=== PATIENT | male | born 1980 | race Caucasian/White ===

== ENCOUNTER 2023-02-21 10:36 | Emergency (ER) | payer MEDICAID, SELFPAY ==
[2023-02-21 10:37] VITALS: BP 150/87; PULSE 88; RESP 18; TEMP 35.9; O2SAT 97; BMI 41.5
--- NOTE | 2023-02-21 11:13 | US_ITS ---
STUDY: SCROTUM ULTRASOUND REASON FOR EXAM: Male, 42 years old. Pain, edema left TECHNIQUE: Ultrasound evaluation of the scrotum was performed with color Doppler and static strickland-scale imaging. COMPARISON: None. FINDINGS: RIGHT TESTICLE INTRATESTICULAR: There is a normal size of the right testicle. The right testicle measures 5 cm x 3.5 cm x 2.4 cm. There is a homogenous echotexture. There is normal arterial and normal venous vascularity. There is no demonstrated right testicular mass or cyst. EXTRATESTICULAR: The epididymis is normal in size. The epididymis head measures 1.1 cm x 1.7 cm x 1 cm. There is normal vascularity of the epididymis. There is no demonstrated epididymal cystic structure. There is no demonstrated hydrocele. There is no demonstrated varicocele. There is no demonstrated extratesticular mass or cyst. LEFT TESTICLE INTRATESTICULAR: There is a normal size of the left testicle. The left testicle measures 4.5 cm x 2 27 x 2.4 cm. There is a homogenous echotexture. There is normal arterial and normal venous vascularity. There is no demonstrated left testicular mass or cyst. EXTRATESTICULAR: The epididymis is normal in size. The epididymis head measures 1.1 cm x 1.3 cm x 1.1 cm. There is normal vascularity of the epididymis. There is no demonstrated epididymal cystic structure. There is no demonstrated hydrocele. There is no demonstrated varicocele. There is no demonstrated extratesticular mass or cyst. Left-sided scrotal skin thickening. US/Testicular with Arterial Flow IMPRESSION: Skin thickening of the left scrotum. Electronically Signed: Phi Anderson MD at 11:57 EDT ,
--- NOTE | 2023-02-21 11:44 | EDS_ITS ---
HPI History of Present Illness Chief Complaint: Male Pain/Injury Informant: patient Narrative Narrative: Patient is a 42-year-old male that denies any significant past medical history presenting with left-sided testicular pain and swelling. He states it started l ast night but is more mild. This morning when he woke up it was more severe. Denies any difficulty urinating. Feels it is swollen as well. It radiates up into his groin. Did not take anything for pain prior to arrival. Denies any penile discharge. Denies any pain with defecation. Denies any history of testicular torsion or epididymitis. Is in a monogamous relationship and states he is not concerned for any sexually transmitted infection. PFSH [facility] Medical History (Updated 02/21/23 @ 14:[address] Aminata Concepcion, ) Diabetes mellitus HLD (hyperlipidemia) Home Medications levofloxacin 750 mg tablet 750 mg PO DAILY #10 tabs 02/21/23 [Rx Last Taken Unknown] Allergy/AdvReac Type Severity Reaction Status Date / Time No Known Allergies Allergy Verified 02/21/23 10:39 Surgical History (Updated 02/21/23 @ 10:46 by Katelyn Cutler) H/O vasectomy Social History Smoking Status: Former smoker ROS ROS ED Constitutional Constitutional ED: Denies chills or fever(s) ENT ENT ED: Denies sore throat Cardiovascular Cardiovascular: Denies chest pain Respiratory/Chest Respiratory/Chest: Denies cough Gastrointestinal Gastrointestinal: Denies abdominal pain, constipation, diarrhea, nausea or vomiting Genitourinary Genitourinary ED: Reports other Details: left groin pain ; Denies dysuria, hematuria or urinary frequency Musculoskeletal Musculoskeletal: Denies arthralgias, back pain or myalgias Integumentary Denies rash Neurologic Neurologic: Denies headache(s) Hematologic/Lymphatic Hematologic/Lymphatic: Denies easy bleeding or easy bruising EXAM Physical Exam Const Vital Signs: 02/21/23 10:37 02/21/23 15:19 Temperature 96.7 F L Temperature Source Temporal Pulse Rate 88 62 Respiratory Rate 18 15 Blood Pressure 150/87 H 138/77 H Blood Pressure Mean 108 Pulse Ox 97 99 Oxygen Delivery Method Room Air Positive well nourished and well developed General Appearance ED: well developed and NAD HEENT Reports moist mucous membranes Eyes PERRL and EOMs intact bilaterally Neck supple and no JVD Resp normal respiratory effort and clear to auscultation bilaterally Cardio regular rate, regular rhythm and no murmurs GI non-tender, non-distended and no masses Narrative: Normal circumcised penis. I do not appreciate any significant edema. No overlying skin changes appreciated. Mild tenderness palpation of the left testicle. Normal lie. Unable to elicit cremasteric reflex bilaterally. No rash or penile discharge. Extremity normal to inspection General Extremety ED: Negative for edema General Extremity: Negative for edema Neuro oriented x3 Sensorium / Orientation: alert Motor Exam: Negative for general weakness Psych mental status grossly normal Skin Lesions: no lesions Rashes: no rashes MDM MDM MDM Narrative Medical decision making narrative: Patient is evaluated for testicular pain that started last night. He is given dose of Motrin in the ER with improvement. Physical exam is not really consistent with testicular torsion however it is on the differential. Differential also includes epididymitis. I do not appreciate any skin rash. Ultrasound does show skin thickening of the left scrotum which is his area of pain. Urinalysis is largely normal and not consistent with any infection. Repeat skin exam performed and I still do not appreciate any overlying cellulitis. Because he is a diabetic I did discuss of obtaining labs because of his increased risk of more serious bacterial infection/cellulitis. Patient is amenable to this. His CBC, BMP and CRP as well as lactate are all normal. He does not have any elevation of his inflammatory markers. His pain is now almost gone. He does have pain on deep palpation of the testicle stool. Given no progression or worsening of his physical exam, no infectious symptoms such as fever, tachycardia, leukocytosis or lactic acidosis and a normal CRP as well as good pain control I do not think he requires close observation/monitoring for early Joaquin's gangrene. Will be started on Levaquin given first dose in the emergency room. Given outpatient urology referral. Counseled on elevation of the testicles as well as ice and NSAIDs. He verbalizes given understands plan. Discharged home in stable condition. Lab Data Attestation: I reviewed the patient's lab results. Labs: Laboratory Results - last 24 hr 02/21/23 02/21/23 02/21/23 11:56 13:42 13:42 WBC 7.5 RBC 5.35 Hgb 15.3 Hct 44.7 MCV 83.6 MCH 28.6 MCHC 34.2 RDW Std Deviation 40.4 RDW Coeff of Allen 13.2 Plt Count 224 MPV 10.3 Immature Gran % (Auto) 0.300 Neut % (Auto) 76.8 H Lymph % (Auto) 16.1 L Emmet % (Auto) 5.5 Eos % (Auto) 0.8 Baso % (Auto) 0.5 Absolute Neuts (auto) 5.7 Absolute Lymphs (auto) 1.20 Nucleated RBC % 0 Sodium 135 L Potassium 4.4 Chloride 104 Carbon Dioxide 27.0 Anion Gap 4 L BUN 17 Creatinine 0.85 Estim Creat Clear Calc 114.51 Est GFR (MDRD) Af Amer 125 Est GFR (MDRD) Non-Af 104 BUN/Creatinine Ratio 20.0 Glucose 177 H Lactic Acid Calcium 9.2 C-React Prot Ext Range < 2.90 Urine Color Yellow Urine Clarity Clear Urine pH 5.0 Ur Specific Media 1.020 Urine Protein Negative Urine Glucose (UA) Normal Urine Ketones Negative Urine Occult Blood Negative Urine Nitrite Negative Urine Bilirubin Negative Urine Urobilinogen Normal Ur Leukocyte Esterase Negative Urine RBC 0 SEEN Urine WBC 0-5 SEEN Ur Squamous Epith Cells 0 SEEN Urine Bacteria 0 SEEN Urine Mucus 0 SEEN 02/21/23 13:42 WBC RBC Hgb Hct MCV MCH MCHC RDW Std Deviation RDW Coeff of Allen Plt Count MPV Immature Gran % (Auto) Neut % (Auto) Lymph % (Auto) Emmet % (Auto) Eos % (Auto) Baso % (Auto) Absolute Neuts (auto) Absolute Lymphs (auto) Nucleated RBC % Sodium Potassium Chloride Carbon Dioxide Anion Gap BUN Creatinine Estim Creat Clear Calc Est GFR (MDRD) Af Amer Est GFR (MDRD) Non-Af BUN/Creatinine Ratio Glucose Lactic Acid 1.8 Calcium C-React Prot Ext Range Urine Color Urine Clarity Urine pH Ur Specific Media Urine Protein Urine Glucose (UA) Urine Ketones Urine Occult Blood Urine Nitrite Urine Bilirubin Urine Urobilinogen Ur Leukocyte Esterase Urine RBC Urine WBC Ur Squamous Epith Cells Urine Bacteria Urine Mucus Radiography Diagnostic Testing: Clinical Impression(s) from Imaging Studies Testicular Ultrasound 02/21/23 11:13 IMPRESSION: Skin thickening of the left scrotum. Electronically Signed: Phi Anderson MD at 11:57 EDT , Discharge Plan Triage Chief Complaint: Male Pain/Injury ED Provider: Aminata Concepcion Dx/Rx/DC Orders Clinical Impression: Left epididymitis, Left groin pain Instructions: ED Epididymitis Prescriptions: New levofloxacin 750 mg tablet 750 mg PO DAILY Qty: 10 0RF Primary Care Provider: DAVE NEWMAN Referrals: Lance Sanchez MD [Med Staff - Active Staff] - 3-5 Days if not improving Care Physician,No Primary [Non-Staff] - Activity Restrictions/Additional Instructions: I suspect you might have a early epididymitis is the cause of your pain. It is possible this could be an early skin infection. This antibiotic should cover for both. If you have increased redness or noticed a rash that is developing please return emergently to the ER. Disposition Disposition: Home, Self Care Discharge Date/Time: 02/21/23 15:19
[2023-02-21] MEDS: Ibuprofen 600 MG Tablet PO (11:49)
[2023-02-21 12:02] LABS: Bacteria 0 SEEN /hpf (None Seen); Mucous, Urine 0 SEEN /hpf (<or=2+); Red Blood Cells-Urine 0 SEEN /hpf (0-5); Squamous Epithelial Cells - UA 0 SEEN /hpf (0-5)
[2023-02-21 12:04] LABS: Glucose, Dipstick Normal (Normal); Ketone-Dipstick Negative (Negative); Leukocyte Esterase-Dipstick Negative /ul (Negative); Nitrite-Dipstick Negative (Negative); Occult Blood-Urine Negative /ul (Negative); Protein-Dipstick Negative (Negative); Urine Bilirubin Dipstick Negative (Negative); Urine Urobilinogen Normal (Normal)
[2023-02-21 12:12] LABS: Color, Urine Yellow (Yellow); Urine Clarity Clear (Clear); White Blood Cells 0-5 SEEN /hpf (0-5)
[2023-02-21 13:53] LABS: Absolute Neutrophil Count 5.7 X10^3/uL (2.0-7.7); Basophil# 0.04 X10^3/uL; Basophil% 0.5 % (0-1); Eosinophil# 0.06 X10^3/uL; Eosinophils% 0.8 % (0-5); Hematocrit 44.7 % (40-54); Hemoglobin 15.3 g/dL (13.0-16.5); Lymphocyte % 16.1 % (19-41); Mean Corp Hgb Conc 34.2 g/dL (32-36); Mean Corpuscular Hgb 28.6 pg (27.0-32.0); Mean Corpuscular Volume 83.6 fL (80-94); Mean Platelet Vol. 10.3 fl (6.2-12.0); Monocyte# 0.41 X10^3/uL; Monocyte% 5.5 % (0-10); NRBC Flagged by Analyzer 0 % (0-5); Neutrophil # 5.73 X10^3/uL (2.7-7.7); Neutrophil % 76.8 % (47-70); Platelet Count 224 K/mm3 (150-450); RBC Distribution Width CV 13.2 % (11.6-14.6); RBC Distribution Width SD 40.4 fl (35.1-43.9); Red Blood Count 5.35 M/mm3 (4.6-6.2); White Blood Count 7.5 K/mm3 (4.4-11.0)
[2023-02-21 14:11] LABS: Anion Gap 4 (5-15); BUN 17 mg/dL (7-18); CRP < 2.90 mg/L (0.0-3.0); Calcium,Total 9.2 mg/dL (8.5-10.1); Chloride 104 mmol/L (98-107); Creatinine, Serum 0.85 mg/dL (0.70-1.30); EST Glomerular Filtration Rate 104 mL/min (>60); Est Glom Filt Rate - Afr Amer 125 mL/min (>60); Estimated Creatinine Clearance 114.51 ml/min; Glucose 177 mg/dL (74-106); Potassium 4.4 mmol/L (3.5-5.1); Sodium Level 135 mmol/L (136-145)
[2023-02-21 14:18] LABS: Lactic Acid 1.8 mmol/L (0.4-1.9)
[2023-02-21] MEDS: levoFLOXacin 750 MG Tablet PO (15:07)
[2023-02-21 15:19] VITALS: BP 138/77; PULSE 62; RESP 15; O2SAT 99
== END 2023-02-21 15:19 | disposition home or self-care (01) ==
PROVIDERS: Emergency Provider Emergency Medicine; Visit Provider Emergency Medicine
DX: N45.1 Epididymitis (principal); N50.812 Left testicular pain; Z87.891 Personal history of nicotine dependence
CPT/HCPCS: 76870; 80048; 81001; 83605; 85025; 86140; 93976; 99284; A4216

== ENCOUNTER 2023-03-28 03:33 | Emergency (ER) | payer MEDICAID, SELFPAY ==
[2023-03-28 03:34] VITALS: BP 154/87; PULSE 76; RESP 16; TEMP 36.1; O2SAT 100; BMI 42.0
--- NOTE | 2023-03-28 03:50 | EDS_ITS ---
HPI History of Present Illness Chief Complaint: Lower Extremity Injury Detail of Chief Complaint: Right great toe pain Informant: patient Onset/Context/Timing Onset: Days Context: Gradual Onset Narrative Narrative: Patient present secondary to pain to the right great toe. He states has been sensitive the past couple days if he bumps it, but tonight was throbbing and he is having difficulty sleeping. He reports having an abnormality to his toenail for several years, unchanged at this time. He denies any known injury. He has not noted any wounds to his feet. [facility] Medical History Diabetes mellitus HLD (hyperlipidemia) Home Medications atorvastatin 20 mg tablet 20 mg PO DAILY 03/28/23 [History Last Taken Unknown] cephalexin 500 mg capsule 500 mg PO Q6 #40 CAPSULES 03/28/23 [Rx Last Taken Unknown] dulaglutide 0.75 mg/0.5 mL subcutaneous pen injector (Trulicity) 0.75 mg subcut QWEEK 03/28/23 [History Last Taken Unknown] fenofibrate 54 mg tablet 145 mg PO DAILY 03/28/23 [History Last Taken Unknown] hydrocodone-acetaminophen 5-325mg 5mg-325mg 1 tab PO Q6H PRN PRN Pain 3 days #10 TABLETS 03/28/23 [Rx Last Taken Unknown] lisinopril 5 mg tablet 5 mg PO DAILY 03/28/23 [History Last Taken Unknown] metformin 1,000 mg tablet 1,000 mg PO BID 03/28/23 [History Last Taken Unknown] sulfamethoxazole 800 mg-trimethoprim 160 mg tablet (Bactrim DS) 1 tab PO BID #20 tabs 03/28/23 [Rx Last Taken Unknown] Allergy/AdvReac Type Severity Reaction Status Date / Time No Known Allergies Allergy Verified 03/28/23 03:37 Surgical History H/O vasectomy Social History Smoking Status: Former smoker ROS ROS ED Constitutional Constitutional ED: Denies chills or fever(s) ENT ENT ED: Denies rhinorrhea Cardiovascular Cardiovascular: Denies chest pain Respiratory/Chest Respiratory/Chest: Denies cough or dyspnea Gastrointestinal Gastrointestinal: Denies abdominal pain, nausea or vomiting Musculoskeletal Musculoskeletal: Reports extremity pain; Denies back pain Integumentary Denies Abrasions or rash Neurologic Neurologic: Denies paresthesias or weakness Allergic/Immunologic Allergic/Immunologic ED: Denies lip swelling or urticaria EXAM Physical Exam Const Vital Signs: 03/28/23 03:34 Temperature 97.0 F L Temperature Source Temporal Pulse Rate 76 Respiratory Rate 16 Blood Pressure 154/87 H Blood Pressure Mean 109 Pulse Ox 100 Oxygen Delivery Method Room Air Positive well nourished and well developed General Appearance ED: well developed HEENT Reports normocephalic and head/scalp atraumatic Eyes PERRL and EOMs intact bilaterally Neck supple Chest Wall inspection of chest normal and palpation of chest normal Resp normal respiratory effort and clear to auscultation bilaterally Cardio regular rate and regular rhythm GI normal to inspection, nondistended, normoactive bowel sounds Palpation: soft Extremity Extremity Narrative: Mild edema noted to the right great toe. No significant erythema or excessive warmth. Chronic toenail deformity noted but no evidence of ingrown toenail at this time. No evidence of felon. Neuro oriented x3 and no sensory deficits noted Sensorium / Orientation: alert Motor Exam: strength 5/5 throughout Psych mental status grossly normal Skin no rashes or lesions noted MDM MDM MDM Narrative Medical decision making narrative: Right foot x-rays are obtained to evaluate for any bony destruction or abnormality. Lab Data Labs: Laboratory Results - last 24 hr 03/28/23 03:44 POC Glucose 177 H Treatment and Re-Evaluation Narrative: Right foot x-ray per my interpretation reveals no acute findings. Blood sugar is checked and is 177. Patient did drive himself to the emergency room. I will write him a prescription for [place] that will be filled here and he will take at home with him tonight. He states that most of his pain is now at the base of his nail. I see no evidence of a paronychia at this time, but we did discuss this is a possibility of early development. I will cover him with Bactrim and Keflex given his diabetes. He will follow-up Dr. Snow, on-call for podiatry. Discharge Plan Triage Chief Complaint: Lower Extremity Injury ED Provider: Renee Hodgson Dx/Rx/DC Orders Clinical Impression: Infection of toe Instructions: ED Paronychia of the Finger or Toe Prescriptions: New hydrocodone-acetaminophen 5-325 mg tablet 1 tab PO Q6H PRN PRN (Reason: Pain) 3 Days Qty: 10 0RF sulfamethoxazole-trimethoprim [Bactrim DS] 800-160 mg tablet 1 tab PO BID Qty: 20 0RF cephalexin 500 mg capsule 500 mg PO Q6 Qty: 40 0RF No Action atorvastatin 20 mg Tablet 20 mg PO DAILY metformin 1,000 mg Tablet 1,000 mg PO BID lisinopril 5 mg Tablet 5 mg PO DAILY fenofibrate 54 mg Tablet 145 mg PO DAILY Trulicity 0.75 mg/0.5 mL Pen Injector 0.75 mg SUBCUT QWEEK Primary Care Provider: DAVE RODRIGUEZ Referrals: Giuseppe Snow DPM [Med Staff - Active Staff] - As soon as possible Disposition Disposition: Home, Self Care
--- NOTE | 2023-03-28 04:00 | RAD_ITS ---
EXAM: XR RIGHT FOOT COMPLETE, 3 OR MORE VIEWS CLINICAL INDICATION: pain TECHNIQUE: Frontal, lateral and oblique views of the right foot. COMPARISON: No relevant prior studies available. FINDINGS: BONES/JOINTS: Unremarkable. No acute fracture. No subluxation. Normal alignment. Preservation of the joint space. No sclerotic or destructive changes observed. SOFT TISSUES: Unremarkable. No soft tissue swelling or gas. No radiopaque foreign body. RAD/Foot min 3 Views IMPRESSION: Negative right foot x-rays. Electronically Signed: Igor Washington MD at 4:27 EDT ,
[2023-03-28 04:06] LABS: Bedside Glucose 177 mg/dL (74-106)
== END 2023-03-28 04:59 | disposition home or self-care (01) ==
PROVIDERS: Emergency Provider Emergency Medicine; Visit Provider Emergency Medicine
DX: L03.031 Cellulitis of right toe (principal); E11.9 Type 2 diabetes mellitus without complications; E78.5 Hyperlipidemia, unspecified; Z87.891 Personal history of nicotine dependence; Z79.84 Long term (current) use of oral hypoglycemic drugs; Z79.899 Other long term (current) drug therapy
CPT/HCPCS: 73630; 82962; 99282

== ENCOUNTER 2023-05-06 22:21 | Emergency (ER) | payer OTHER, MEDICAID, SELFPAY ==
[2023-05-06 22:23] VITALS: BP 137/87; PULSE 87; RESP 16; TEMP 36.4; O2SAT 100; BMI 40.5
--- NOTE | 2023-05-06 22:38 | EDS_ITS ---
HPI History of Present Illness Chief Complaint: Chest Other Informant: patient Onset/Context/Timing Onset: Today Mechanism/Context: Blunt Injury, Fall and Work Related Quality of Pain: Sharp Location: Right chest Worsened by: Breathing, coughing, talking Relieved by: Tylenol Associated Symptoms Associated Symptoms: Negative for Parasthesias, Weakness, Loss of function, Inability to ambulate, Loss of consciousness or Amnesia Narrative Narrative: Patient presents with right chest injury that occurred today. 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 Patient states he fell and landed on the right side of his chest on his right elbow. Patient states the pain has been constant since the injury. Patient describes it as sharp. Patient states it is worse with talking, breathing, coughing, and movement. Patient states he did take some Tylenol which helped. Patient denies any paresthesias or weakness. Patient denies any head injury or loss of consciousness. Patient denies any other injuries. [facility] Medical History Diabetes mellitus HLD (hyperlipidemia) Home Medications atorvastatin 20 mg tablet 20 mg PO DAILY 03/28/23 [History Last Taken Unknown] cephalexin 500 mg capsule 500 mg PO Q6 #40 CAPSULES 03/28/23 [Rx Last Taken Unknown] dulaglutide 0.75 mg/0.5 mL subcutaneous pen injector (Trulicity) 0.75 mg subcut QWEEK 03/28/23 [History Last Taken Unknown] fenofibrate 54 mg tablet 145 mg PO DAILY 03/28/23 [History Last Taken Unknown] hydrocodone-acetaminophen 5-325mg 5mg-325mg 1 tab PO Q6H PRN PRN Pain 3 days #10 TABLETS 03/28/23 [Rx Last Taken Unknown] lisinopril 5 mg tablet 5 mg PO DAILY 03/28/23 [History Last Taken Unknown] metformin 1,000 mg tablet 1,000 mg PO BID 03/28/23 [History Last Taken Unknown] sulfamethoxazole 800 mg-trimethoprim 160 mg tablet (Bactrim DS) 1 tab PO BID #20 tabs 03/28/23 [Rx Last Taken Unknown] Allergy/AdvReac Type Severity Reaction Status Date / Time No Known Allergies Allergy Verified 05/06/23 22:23 Surgical History H/O vasectomy Social History Smoking Status: Former smoker ROS ROS ED Constitutional Constitutional ED: Denies chills or fever(s) Eyes Eyes: Denies blurry vision or change in vision ENT ENT ED: Denies rhinorrhea or sore throat Cardiovascular Cardiovascular: Reports chest pain; Denies palpitations Respiratory/Chest Respiratory/Chest: Denies cough or dyspnea Gastrointestinal Gastrointestinal: Denies nausea or vomiting Genitourinary Genitourinary ED: Denies dysuria or hematuria Musculoskeletal Musculoskeletal: Denies back pain or neck pain Integumentary Denies abscess or rash Neurologic Neurologic: Denies headache(s) or weakness Allergic/Immunologic Allergic/Immunologic ED: Denies mouth swelling or urticaria EXAM Physical Exam Const Vital Signs: 05/06/23 22:23 05/06/23 22:30 Temperature 97.5 F L Temperature Source Temporal Pulse Rate 87 Respiratory Rate 16 Respiratory Effort Normal Non-Labored Respiratory Pattern Normal Blood Pressure 137/87 H Blood Pressure Mean 103 Pulse Ox 100 Positive well nourished, well developed and obese General Appearance ED: well developed and NAD Nutritional Appearance: obese HEENT Reports moist mucous membranes Neck supple and no JVD Chest Wall Chest Narrative: There is tenderness over the right lateral ribs. There is no bony crepitance or step-off. There is no subcutaneous emphysema noted. Resp normal respiratory effort and clear to auscultation bilaterally Cardio regular rate and regular rhythm GI normal to inspection, nondistended, normoactive bowel sounds and non-tender Palpation: soft Extremity normal to inspection General Extremety ED: Negative for edema or tenderness General Extremity: Negative for edema Neuro oriented x3, CN's II-XII intact bilaterally and no sensory deficits noted Sensorium / Orientation: alert Motor Exam: strength 5/5 throughout Psych mental status grossly normal Skin no rashes or lesions noted MDM MDM MDM Narrative Medical decision making narrative: Differential diagnosis includes rib fracture, right chest wall contusion, and pneumothorax. X-rays of the right ribs will be obtained to assess for fracture or pneumothorax. Radiography Diagnostic Testing: Clinical Impression(s) from Imaging Studies Ribs w/Chest X-Ray 05/06/23 22:57 IMPRESSION: Negative chest and right ribs. Electronically Signed: Jose Lanier MD at 23:17 EDT , X-rays of the right ribs were obtained. There are 5 views. On my independent interpretation, there is no acute rib fracture. There is no pneumothorax. Radiologist also interpreted the x-rays and agrees. Treatment and Re-Evaluation Narrative: Patient was advised of his findings. Patient was instructed to use ice to the area. Patient was instructed to take Tylenol or ibuprofen as needed for pain. Patient was instructed to take 10-15 deep breaths every hour while awake to prevent atelectasis and pneumonia. Patient understood and was agreeable with the plan. Patient was instructed to follow-up with his primary care physician or the [facility] in 5 to 7 days. All questions were answered. Discharge Plan Triage Chief Complaint: Chest Other ED Provider: Ko Bush Dx/Rx/DC Orders Clinical Impression: Contusion of right chest wall Instructions: ED Chest Wall Contusion Prescriptions: No Action atorvastatin 20 mg Tablet 20 mg PO DAILY metformin 1,000 mg Tablet 1,000 mg PO BID lisinopril 5 mg Tablet 5 mg PO DAILY fenofibrate 54 mg Tablet 145 mg PO DAILY Trulicity 0.75 mg/0.5 mL Pen Injector 0.75 mg SUBCUT QWEEK hydrocodone-acetaminophen 5-325 mg tablet 1 tab PO Q6H PRN PRN (Reason: Pain) 3 Days Qty: 10 0RF sulfamethoxazole-trimethoprim [Bactrim DS] 800-160 mg tablet 1 tab PO BID Qty: 20 0RF cephalexin 500 mg capsule 500 mg PO Q6 Qty: 40 0RF Primary Care Provider: DAVE NEWMAN Referrals: [facility] [Non-Staff] - 5-7 Days [facility] Doctor,Out of [Non-Staff] - 5-7 Days Activity Restrictions/Additional Instructions: Take 10-15 deep breaths every hour while awake to prevent pneumonia Disposition Disposition: Home, Self Care Discharge Date/Time: 05/07/23 00:35
--- NOTE | 2023-05-06 22:57 | RAD_ITS ---
INDICATION: Injury. Right upper anterior rib pain after fall today. EXAMINATION/TECHNIQUE: X-RAY - XR Ribs Unilateral W/ PA Chest Min 3 Views COMPARISON: None. FINDINGS: LINES/DEVICES: None. LUNGS: No pulmonary edema or focal airspace consolidation. No sizable pleural effusion. No pneumothorax detected. MEDIASTINUM AND CARDIOVASCULAR STRUCTURES: Heart size within normal limits. Mediastinal contours unremarkable. BONES AND SOFT TISSUES: No displaced rib fracture or focal osseous lesion demonstrated. RAD/Ribs Uni Min 3V w/PA Chest IMPRESSION: Negative chest and right ribs. Electronically Signed: Jose Lanier MD at 23:17 EDT ,
== END 2023-05-07 00:35 | disposition home or self-care (01) ==
PROVIDERS: Emergency Provider Emergency Medicine; Visit Provider Emergency Medicine
DX: S20.20XA Contusion of thorax, unspecified, initial encounter (principal); W19.XXXA Unspecified fall, initial encounter; Z87.891 Personal history of nicotine dependence; Y99.0 Civilian activity done for income or pay
CPT/HCPCS: 71101; 99282

== ENCOUNTER 2023-07-21 09:58 | Emergency (ER) | payer MEDICAID, SELFPAY ==
[2023-07-21 09:59] VITALS: BP 151/95; PULSE 88; RESP 14; TEMP 36.4; O2SAT 99; BMI 39.4
--- NOTE | 2023-07-21 10:25 | EX.ED.GUMALE ---
HPI History of Present Illness Chief Complaint: Male Pain/Injury Detail of Chief Complaint: Left testicular pain Informant: patient Pain Onset: Days (Onset July 19) Context: Sudden Onset Timing: Continuous Current Severity: Mild Maximum Severity: Moderate Worsened by: Nothing specific Relieved by: Nothing Appearance Lesion(s): No Genital Edema: No Penile Discharge Genital Discharge Amount: None Urinary Symptoms Genitourinary Symptoms: No Symptoms Related History Sexually: Active and Single Partner (Patient is and reports monogamous relationship) STD: No Bladder/Kidney Infection: No Prostate Infection: No Narrative Narrative: Patient is a 43-year-old male who presents with left testicular pain. He denies trauma. He denies fever, chills night sweats. Denies dysuria, frequency, urgency or hematuria. He denies penile lesion or discharge. He has no history of STI. He does have history of diabetes. Last A1c was 7.5 reviewing outside records. He is on a cholesterol med and lisinopril. He denies history of prostatitis. Prior similar symptoms: No Recent Illness/Hospitalization: No PFSH PFSH Medical History Acute pharyngitis, unspecified Cancer Chronic neck and back pain Diabetes Diabetes mellitus Fatigue Headache HLD (hyperlipidemia) HTN (hypertension) Shortness of breath Home Medications atorvastatin 20 mg tablet 20 mg PO QHS 01/06/23 [History Last Taken Unknown] fenofibrate nanocrystallized 145 mg tablet 145 mg PO DAILY 01/06/23 [History Last Taken Unknown] lisinopril 5 mg tablet 5 mg PO DAILY 01/06/23 [History Last Taken Unknown] metformin 1,000 mg tablet 1,000 mg PO BID 01/06/23 [History Last Taken Unknown] zinc acetate 25 mg (zinc) capsule 25 mg PO DAILY 01/06/23 [History Last Taken Unknown] atorvastatin 20 mg tablet 20 mg PO DAILY 03/28/23 [History Last Taken Unknown] cephalexin 500 mg capsule 500 mg PO Q6 #40 CAPSULES 03/28/23 [Rx Last Taken Unknown] dulaglutide 0.75 mg/0.5 mL subcutaneous pen injector (Trulicity) 0.75 mg subcut QWEEK 03/28/23 [History Last Taken Unknown] fenofibrate 54 mg tablet 145 mg PO DAILY 03/28/23 [History Last Taken Unknown] hydrocodone-acetaminophen 5-325mg 5mg-325mg 1 tab PO Q6H PRN PRN Pain 3 days #10 TABLETS 03/28/23 [Rx Last Taken Unknown] lisinopril 5 mg tablet 5 mg PO DAILY 03/28/23 [History Last Taken Unknown] metformin 1,000 mg tablet 1,000 mg PO BID 03/28/23 [History Last Taken Unknown] sulfamethoxazole 800 mg-trimethoprim 160 mg tablet (Bactrim DS) 1 tab PO BID #20 tabs 03/28/23 [Rx Last Taken Unknown] naproxen 500 mg tablet 500 mg PO BID #10 tabs 07/21/23 [Rx Last Taken Unknown] Allergy/AdvReac Type Severity Reaction Status Date / Time No Known Allergies Allergy Verified 07/21/23 10:00 Surgical History H/O vasectomy Social History Smoking Status: Former smoker quit date: 11/17/14 alcohol intake: current alcohol intake frequency: a few times a month ROS ROS ED Constitutional Constitutional ED: Denies chills, fever(s), subjective or sweats Gastrointestinal Gastrointestinal: Denies abdominal pain, nausea or vomiting Genitourinary Genitourinary ED: Denies dysuria, hematuria or urinary frequency Musculoskeletal Musculoskeletal: Denies arthralgias, back pain, myalgias or neck pain Integumentary Denies rash EXAM Physical Exam Const Vital Signs: 07/21/23 09:59 Temperature 97.5 F L Temperature Source Temporal Pulse Rate 88 Respiratory Rate 14 Blood Pressure 151/95 H Blood Pressure Mean 113 Pulse Ox 99 Oxygen Delivery Method Room Air Positive well nourished, well developed and obese General Appearance ED: well developed and NAD; Negative for pallor Nutritional Appearance: obese HEENT Reports moist mucous membranes normocephalic and atraumatic Eyes PERRL and EOMs intact bilaterally Neck no lymphadenopathy and supple Resp normal respiratory effort Cardio regular rate and regular rhythm GI non-tender, non-distended and no masses Palpation: soft no CVA tenderness Narrative: There is no penile lesions or discharge noted. Testes are centered bilaterally. There is minimal tenderness over the left epididymis. Lie is normal. Cremasteric reflexes noted bilaterally and symmetric. There is no evidence of inguinal mass or hernia. There is no inguinal lymphadenopathy. Back/Spine no CVA tenderness Neuro oriented x3, CN's II-XII intact bilaterally and moves all extremities Psych mental status grossly normal Skin General Skin Exam: Negative for jaundice or pallor Lesions: no lesions Rashes: no rashes MDM MDM MDM Narrative Medical decision making narrative: Patient with epididymal tenderness. His tenderness is very minimal. There is no swelling of the epididymis or left testicle. Symptoms are not consistent with testicular torsion. Patient possibly has traumatic epididymitis. Will obtain UA to see if there is any evidence of pyuria. We will also obtain urine for GC and chlamydia. Because he is diabetic and his last A1c level was elevated BMP was obtained assess glucose, renal function more importantly. History & Record Review Additional record(s) reviewed:: Prior outpatient record Lab Data Attestation: I reviewed the patient's lab results. Lab results narrative: Basic metabolic panel is remarkable for glucose of 290 with normal CO2 anion gap. Urine is negative. Since patient has tenderness of the epididymis we will treat with NSAIDs since he has normal renal function with no history of peptic ulcer disease. Labs: Laboratory Results - last 24 hr 07/21/23 07/21/23 10:30 10:55 Sodium 135 L Potassium 4.2 Chloride 103 Carbon Dioxide 28.0 Anion Gap 4 L BUN 18 Creatinine 1.21 Estim Creat Clear Calc 79.60 Est GFR (MDRD) Af Amer 83 Est GFR (MDRD) Non-Af 69 BUN/Creatinine Ratio 14.9 Glucose 290 H Calcium 9.1 Urine Color Yellow Urine Clarity Clear Urine pH 7.0 Ur Specific [place] 1.015 Urine Protein Negative Urine Glucose (UA) 1000 H Urine Ketones Negative Urine Occult Blood Negative Urine Nitrite Negative Urine Bilirubin Negative Urine Urobilinogen Normal Ur Leukocyte Esterase Negative Urine RBC 0 SEEN Urine WBC 0 SEEN Ur Squamous Epith Cells 0 SEEN Urine Bacteria 0 SEEN Urine Mucus 0 SEEN Treatment and Re-Evaluation Narrative: Discussed under the laboratory section of the chart. Discharge Plan Triage Chief Complaint: Male Pain/Injury ED Provider: Gee Lau Dx/Rx/DC Orders Clinical Impression: Epididymitis Instructions: ED Epididymitis Prescriptions: New naproxen 500 mg tablet 500 mg PO BID Qty: 10 0RF No Action metformin 1,000 mg tablet 1,000 mg PO BID atorvastatin 20 mg tablet 20 mg PO QHS Patient Comments: take 1 tablet by mouth once daily fenofibrate nanocrystallized 145 mg tablet 145 mg PO DAILY lisinopril 5 mg tablet 5 mg PO DAILY zinc acetate 25 mg (zinc) capsule 25 mg PO DAILY atorvastatin 20 mg Tablet 20 mg PO DAILY metformin 1,000 mg Tablet 1,000 mg PO BID lisinopril 5 mg Tablet 5 mg PO DAILY fenofibrate 54 mg Tablet 145 mg PO DAILY Trulicity 0.75 mg/0.5 mL Pen Injector 0.75 mg SUBCUT QWEEK hydrocodone-acetaminophen 5-325 mg tablet 1 tab PO Q6H PRN PRN (Reason: Pain) 3 Days Qty: 10 0RF sulfamethoxazole-trimethoprim [Bactrim DS] 800-160 mg tablet 1 tab PO BID Qty: 20 0RF cephalexin 500 mg capsule 500 mg PO Q6 Qty: 40 0RF Primary Care Provider: DAVE NEWMAN Referrals: DAVE NEWMAN [Other] - 3-5 Days if not improving Disposition Disposition: Home, Self Care
[2023-07-21 10:52] LABS: Anion Gap 4 (5-15); BUN 18 mg/dL (7-18); BUN/Creat Ratio 14.9 RATIO (10-20); Calcium,Total 9.1 mg/dL (8.5-10.1); Chloride 103 mmol/L (98-107); Creatinine, Serum 1.21 mg/dL (0.70-1.30); EST Glomerular Filtration Rate 69 mL/min (>60); Est Glom Filt Rate - Afr Amer 83 mL/min (>60); Glucose 290 mg/dL (74-106); Potassium 4.2 mmol/L (3.5-5.1); Sodium Level 135 mmol/L (136-145)
[2023-07-21 11:00] LABS: Bacteria 0 SEEN /hpf (None Seen); Mucous, Urine 0 SEEN /hpf (<or=2+); Red Blood Cells-Urine 0 SEEN /hpf (0-5); Squamous Epithelial Cells - UA 0 SEEN /hpf (0-5); White Blood Cells 0 SEEN /hpf (0-5)
[2023-07-21 11:06] LABS: Color, Urine Yellow (Yellow); Glucose, Dipstick 1000 mg/dl (Normal); Ketone-Dipstick Negative (Negative); Leukocyte Esterase-Dipstick Negative /ul (Negative); Nitrite-Dipstick Negative (Negative); Occult Blood-Urine Negative /ul (Negative); Protein-Dipstick Negative (Negative); Specific Gravity, Urine 1.015 (1.002-1.030); Urine Bilirubin Dipstick Negative (Negative); Urine Clarity Clear (Clear); Urine Urobilinogen Normal (Normal)
== END 2023-07-21 11:51 | disposition home or self-care (01) ==
PROVIDERS: Emergency Provider Emergency Medicine; Visit Provider Emergency Medicine
DX: N45.1 Epididymitis (principal); E66.9 Obesity, unspecified; Z87.891 Personal history of nicotine dependence
CPT/HCPCS: 80048; 81001; 87491; 99282; A4216

== ENCOUNTER 2024-05-07 22:58 | Emergency (ER) | payer MEDICAID, SELFPAY ==
[2024-05-07 22:59] VITALS: BP 130/78; PULSE 110; RESP 20; TEMP 37.3; O2SAT 93; BMI 39.6
--- NOTE | 2024-05-07 23:21 | EDS_ITS ---
HPI HPI - GI History of Present Illness Chief Complaint: Abd Pain Informant: patient Narrative Narrative: Vomiting since 12:30 PM slight diarrhea. Nonbloody. Unable to keep things down. A clamp seashells at home. Spouse yesterday was sick with similar symptoms. No fevers. Mild abdominal pain. However states aches all over his body. He is a diabetic on medications. Denies history of kidney injury. Denies any allergies. Denies any recent antibiotics. Denies any history abdominal surgeries. [facility] Medical History Acute pharyngitis, unspecified Chronic neck and back pain Headache Fatigue Shortness of breath Diabetes Cancer HTN (hypertension) HLD (hyperlipidemia) Diabetes mellitus Home Medications ?Medication ?Instructions ?Recorded ?Last Taken ?Type atorvastatin 20 mg tablet 20 mg PO QHS 01/06/23 Unknown History fenofibrate nanocrystallized 145 145 mg PO DAILY 01/06/23 Unknown History mg tablet lisinopril 5 mg tablet 5 mg PO DAILY 01/06/23 Unknown History metformin 1,000 mg tablet 1,000 mg PO BID 01/06/23 Unknown History zinc acetate 25 mg (zinc) capsule 25 mg PO DAILY 01/06/23 Unknown History atorvastatin 20 mg tablet 20 mg PO DAILY 03/28/23 Unknown History cephalexin 500 mg capsule 500 mg PO Q6 #40 CAPSULES 03/28/23 Unknown Rx dulaglutide 0.75 mg/0.5 mL 0.75 mg subcut QWEEK 03/28/23 Unknown History subcutaneous pen injector (Trulicity) fenofibrate 54 mg tablet 145 mg PO DAILY 03/28/23 Unknown History hydrocodone-acetaminophen 5-325mg 1 tab PO Q6H PRN PRN Pain 3 days 03/28/23 Unknown Rx 5mg-325mg #10 TABLETS lisinopril 5 mg tablet 5 mg PO DAILY 03/28/23 Unknown History metformin 1,000 mg tablet 1,000 mg PO BID 03/28/23 Unknown History sulfamethoxazole 800 1 tab PO BID #20 tabs 03/28/23 Unknown Rx mg-trimethoprim 160 mg tablet (Bactrim DS) naproxen 500 mg tablet 500 mg PO BID #10 tabs 07/21/23 Unknown Rx famotidine 20 mg tablet (Pepcid) 20 mg PO BID #20 tabs 05/08/24 Unknown Rx ondansetron 4 mg disintegrating 4 mg PO Q8H PRN PRN Nausea #10 tabs 05/08/24 Unknown Rx tablet Allergy/AdvReac Type Severity Reaction Status Date / Time No Known Allergies Allergy Verified 05/07/24 22:59 Surgical History H/O vasectomy Social History Smoking Status: Former smoker quit date: 11/17/14 alcohol intake: current alcohol intake frequency: a few times a month ROS ROS ED Constitutional Constitutional ED: Denies chills, fever(s) or sweats Eyes Eyes: Denies change in vision ENT ENT ED: Denies dysphagia or sore throat Cardiovascular Cardiovascular: Denies chest pain, leg edema, palpitations or racing heartbeat Respiratory/Chest Respiratory/Chest: Denies cough, dyspnea or dyspnea on exertion Gastrointestinal Gastrointestinal: Reports abdominal pain, diarrhea, nausea and vomiting Genitourinary Genitourinary ED: Denies dysuria, hematuria or urinary frequency Musculoskeletal Musculoskeletal: Reports myalgias; Denies back pain, extremity pain or neck pain Integumentary Denies rash or wounds Neurologic Neurologic: Denies headache(s), paresthesias or weakness EXAM Physical Exam Const Vital Signs: 05/07/24 22:59 Temperature 99.1 F Temperature Source Temporal Pulse Rate 110 H Respiratory Rate 20 H Blood Pressure 130/78 H Blood Pressure Mean 95 Pulse Ox 93 Oxygen Delivery Method Room Air Positive well nourished and well developed General Appearance ED: well developed and NAD HEENT HEENT Narrative: Mild dry mucosal membranes normocephalic and atraumatic Eyes EOMs intact bilaterally and conjunctivae normal General Eye ED: Yes normal appearance of both eyes Neck no lymphadenopathy and supple General: Negative for tenderness Chest Wall Chest: Negative for tenderness Resp normal respiratory effort and normal air movement Effort and Inspection: symmetric chest movement; Negative for respiratory distress Cardio regular rhythm and no murmurs Rate: tachycardic Peripheral Pulses: pulses 2+ throughout GI normal to inspection, nondistended, normoactive bowel sounds GI Narrative: Mild mid abdominal tenderness. Negative Olmedo's or McBurney's tenderness. Palpation: Negative for guarding or rebound tenderness present Back/Spine no CVA tenderness and no thoracic nor lumbar tenderness Extremity normal to inspection General Extremety ED: Negative for edema or tenderness General Extremity: Negative for edema Neuro oriented x3 and no sensory deficits noted Sensorium / Orientation: awake and alert Skin no rashes or lesions noted and no wounds MDM MDM MDM Narrative Medical decision making narrative: Interventions / MDM: Differential diagnosis: Dehydration, gastritis, gastroenteritis Diagnosis considered but do not suspect: Pancreatitis however normal lipase. No clinical colitis. My EKG interpretation: N/A Imaging independently reviewed and interpreted by myself: N/A External documents reviewed: N/A Test considered but not ordered:N/A ED course: Patient nonsurgical abdomen. Dry mucous members tachycardia. IV established will check abdominal labs, IV fluids, Zofran, Pepcid, Toradol ordered for symptom control. 0055: Clinical feeling better soft abdomen. Labs are all stable. Lipase normal. Patient tolerating oral fluids on reevaluation. Prescription for Zofran and Pepcid with meds to bed. Work note given. Continue oral fluids at home. All questions were answered. Re-evaluation: stable Disposition discussed with patient/family/significant other: Patient Case discussed with consulting clinician: N/A This note was generated with [employer] dictation software. It may contain incorrect words, spelling, and punctuation that were not noted in checking the note before signing. Lab Data Attestation: I reviewed the patient's lab results. Labs: Laboratory Results - last 24 hr 05/07/24 23:39 WBC 7.2 RBC 5.59 Hgb 15.3 Hct 45.8 MCV 81.9 MCH 27.4 MCHC 33.4 RDW Std Deviation 40.2 RDW Coeff of Allen 13.6 Plt Count 178 MPV 10.2 Immature Gran % (Auto) 0.300 Neut % (Auto) 92.7 H Lymph % (Auto) 3.6 L [place] % (Auto) 3.0 Eos % (Auto) 0.1 Baso % (Auto) 0.3 Absolute Neuts (auto) 6.7 Absolute Lymphs (auto) 0.26 L Nucleated RBC % 0 Sodium 132 L Potassium 4.0 Chloride 102 Carbon Dioxide 24.0 Anion Gap 6 BUN 19 H Creatinine 1.10 Estim Creat Clear Calc 111.63 Est GFR (MDRD) Af Amer 93 Est GFR (MDRD) Non-Af 77 BUN/Creatinine Ratio 17.3 Glucose 270 H Calcium 8.2 L Total Bilirubin 1.70 H AST 15 ALT 30 Alkaline Phosphatase 51 Total Protein 6.3 L Albumin 3.4 Globulin 2.9 Albumin/Globulin Ratio 1.2 Lipase 23 Discharge Plan Triage Chief Complaint: Abd Pain Other Complaint: Nausea/Vomiting/Diarrhea ED Provider: Jon Cruz Dx/Rx/DC Orders Clinical Impression: Nausea, vomiting, and diarrhea, Dehydration Instructions: ED Dehydration (Adult), ED FOOD POIS or G-ENTERITIS [id number] Prescriptions: New famotidine [Pepcid] 20 mg tablet 20 mg PO BID Qty: 20 0RF ondansetron 4 mg tablet,disintegrating 4 mg PO Q8H PRN PRN (Reason: Nausea) Qty: 10 0RF No Action metformin 1,000 mg tablet 1,000 mg PO BID atorvastatin 20 mg tablet 20 mg PO QHS Patient Comments: take 1 tablet by mouth once daily fenofibrate nanocrystallized 145 mg tablet 145 mg PO DAILY lisinopril 5 mg tablet 5 mg PO DAILY zinc acetate 25 mg (zinc) capsule 25 mg PO DAILY atorvastatin 20 mg Tablet 20 mg PO DAILY metformin 1,000 mg Tablet 1,000 mg PO BID lisinopril 5 mg Tablet 5 mg PO DAILY fenofibrate 54 mg Tablet 145 mg PO DAILY Trulicity 0.75 mg/0.5 mL Pen Injector 0.75 mg SUBCUT QWEEK hydrocodone-acetaminophen 5-325 mg tablet 1 tab PO Q6H PRN PRN (Reason: Pain) 3 Days Qty: 10 0RF sulfamethoxazole-trimethoprim [Bactrim DS] 800-160 mg tablet 1 tab PO BID Qty: 20 0RF cephalexin 500 mg capsule 500 mg PO Q6 Qty: 40 0RF naproxen 500 mg tablet 500 mg PO BID Qty: 10 0RF Stand Alone Forms: ED Work / School Excuse Primary Care Provider: Zack Booker Referrals: Zack Booker MD [Primary Care Provider] - 3-5 Days Activity Restrictions/Additional Instructions: Blood work all stable. Clinical dehydration. Continue oral fluids. Take medications as prescribed. Follow-up with your doctor. Symptoms worsen not controlled medications, return to the ED for reevaluation. Print Language: Georgian Disposition Disposition: Home, Self Care
[2024-05-07 23:47] LABS: Absolute Lymphocyte Count 0.26 X10^3/uL (0.83-4.51); Absolute Neutrophil Count 6.7 X10^3/uL (2.0-7.7); Basophil# 0.02 X10^3/uL; Basophil% 0.3 % (0-1); Eosinophil# 0.01 X10^3/uL; Eosinophils% 0.1 % (0-5); Hematocrit 45.8 % (40-54); Hemoglobin 15.3 g/dL (13.0-16.5); Lymphocyte # 0.26 X10^3/ul (0.83-4.51); Lymphocyte % 3.6 % (19-41); Mean Corp Hgb Conc 33.4 g/dL (32-36); Mean Corpuscular Hgb 27.4 pg (27.0-32.0); Mean Corpuscular Volume 81.9 fL (80-94); Mean Platelet Vol. 10.2 fl (6.2-12.0); Monocyte# 0.22 X10^3/uL; NRBC Flagged by Analyzer 0 % (0-5); Neutrophil % 92.7 % (47-70); POSITIVE DIFFERENTIAL YES; Platelet Count 178 K/mm3 (150-450); RBC Distribution Width CV 13.6 % (11.6-14.6); RBC Distribution Width SD 40.2 fl (35.1-43.9); Red Blood Count 5.59 M/mm3 (4.6-6.2); White Blood Count 7.2 K/mm3 (4.4-11.0)
[2024-05-08] MEDS: Ondansetron 4 MG/2 ML Vial IV
[2024-05-08] MEDS: Ketorolac 15 MG/ML Vial IV
[2024-05-08] MEDS: 0.9% Normal Saline (1000mL) 1,000 ML 1000 ML IV
[2024-05-08] MEDS: Famotidine 200 MG/20 ML MDV 20 MG in 0.9% Normal Saline (Pres. free 8 ML 300 MG IV (00:04)
[2024-05-08 00:14] LABS: ALB/GLOB Ratio 1.2 RATIO (0.9-2.4); AST(SGOT) 15 U/L (15-37); Alanine Aminotransfer ALT/SGPT 30 U/L (16-61); Albumin, Serum 3.4 g/dL (3.2-5.0); Alkaline Phosphatase 51 U/L (45-117); Anion Gap 6 (5-15); BUN 19 mg/dL (7-18); BUN/Creat Ratio 17.3 RATIO (10-20); Calcium,Total 8.2 mg/dL (8.5-10.1); Chloride 102 mmol/L (98-107); EST Glomerular Filtration Rate 77 mL/min (>60); Est Glom Filt Rate - Afr Amer 93 mL/min (>60); Estimated Creatinine Clearance 111.63 ml/min; Globulin 2.9 g/dL (2.2-4.2); Glucose 270 mg/dL (74-106); Lipase 23 U/L (13-75); Protein, Total 6.3 g/dL (6.4-8.2); Sodium Level 132 mmol/L (136-145)
[2024-05-08 01:00] VITALS: BP 98/69; PULSE 90; RESP 18; TEMP 36.6; O2SAT 94
[2024-05-08 01:22] VITALS: BP 98/69; PULSE 90; RESP 18; TEMP 36.6; O2SAT 94
== END 2024-05-08 01:24 | disposition home or self-care (01) ==
PROVIDERS: Emergency Provider Emergency Medicine; PCP Family Medicine; Visit Provider Emergency Medicine
DX: R11.2 Nausea with vomiting, unspecified (principal); E11.9 Type 2 diabetes mellitus without complications; R19.7 Diarrhea, unspecified; E86.0 Dehydration; Z87.891 Personal history of nicotine dependence
CPT/HCPCS: 80053; 83690; 85025; 96365; 96375; 96376; 99283; J7030; A4216; J2405; J3490